=== PATIENT | male | born 1985 | race Hispanic/Latino ===

== ENCOUNTER 2020-10-15 19:29 | Emergency (ER) | payer SELFPAY ==
[~2020-10-15 19:29] MED LIST: Iopamidol-370 76% 500 ML 1 ML ONE
[2020-10-15] MEDS ORDERED: Albuterol 200 PUFF (6.7GM INHALER) ONE (20:06)
[2020-10-15 20:11] LABS: #Monocytes 0.6 thou/uL (0.11-0.59); #Neutrophils 10.4 thou/uL (1.40-6.50); %Basophils 0.3 % (0.0-1.0); %Eosinophils 0.3 % (0.0-10.0); %Lymphocytes 8.1 % (21.0-51.0); %Monocytes 4.7 % (0.0-10.0); %Neutrophils 86.5 % (42.0-75.0); Hemoglobin 13.4 g/dL (14.0-18.0); Mean Corpuscular HGB CONC 34.6 g/dL (32.0-36.0); Mean Corpuscular Hemoglobin 30.5 pg (27.0-31.0); Mean Platelet Volume 8.3 fL (7.4-10.4); Platelet Count 291 thou/uL (130-400); RBC Distribution Width 11.1 % (11.5-14.5); Red Blood Cell (RBC) Count 4.38 mill/uL (4.70-6.10)
[2020-10-15 20:31] LABS: ALT (SGPT) 57 U/L (8-55); AST (SGOT) 40 U/L (5-34); Albumin 4.2 g/dL (3.5-5.0); Alkaline Phosphatase 101 U/L (40-110); Anion Gap 18 mmol/L (10-20); BUN (Urea Nitrogen) 26 mg/dL (8.9-20.6); Bilirubin, Total 0.5 mg/dL (0.2-1.2); Calc. Creatinine Clearance 0 mL/min (70-130); Calcium 9.3 mg/dL (7.8-10.44); Carbon Dioxide 22 mmol/L (22-29); Chloride 104 mmol/L (98-107); Globulin 3.8 g/dL (2.4-3.5); Glucose 131 mg/dL (70-105); Potassium 3.7 mmol/L (3.5-5.1); Sodium 140 mmol/L (136-145)
--- NOTE | 2020-10-15 20:48 | RAD ---
PORTABLE CHEST: 10/15/20 HISTORY: Chest pain, shortness of breath. Hazy infiltrates seen in the right mid and lower lung and patchy infiltrates in the left peripheral m id lung. Findings are consistent with COVID pneumonia. IMPRESSION: Bilateral infiltrates consistent with COVID pneumonia. POS: AGW
--- NOTE | 2020-10-15 21:54 | CT ---
CTA CHEST WITH CONTRAST: 10/15/20 Tomograms obtained following angiogram protocol with multiplanar reconstruction and 3D postprocessing . INDICATIONS: Dyspnea. FINDINGS: Pulmonary arteries are adequately opacified. No evidence of pulmonary embolus identified. Thoracic ao rta unremarkable. Mediastinal and hilar adenopathy. Lung lyons show patchy areas of ground glass infiltrate involving all lobes of both lungs more prominent in the posterior lower lobes bilaterally. Findings are consist ent with diffuse COVID pneumonia. IMPRESSION: 1. No evidence of pulmonary embolus. 2. Bilateral infiltrates consistent with COVID pneumonia. POS: AGW
== END 2020-10-15 22:38 | disposition home or self-care (01) ==
LOC: ERS 19:29
DX: U07.1 COVID-19 (principal); J12.82 Pneumonia due to coronavirus disease 2019
CPT/HCPCS: 71045; 71275; 80053; 85025; 85379; 93005; 94664; Q9967